=== PATIENT | female | born 1950 | race Caucasian/White ===

== ENCOUNTER 2016-06-21 07:59 | Inpatient (IN) | payer OTHER ==
--- NOTE | ~2016-06-21 | CN ---
Consultation Report [facility] [address] [place]. [address] NAME: MARCOS MORA : 52 STATUS : ADM IN PAT#: [id number] AGE: 65 ADM/REG DATE : 06/21/16 MR#: [id number] REPORT SERV DATE: 06/22/16 DICTATED BY: DATE: REPORT STATUS : Draft TRANSCRIBED BY: MODL DATE: 06/21/16 NEUROLOGY CONSULTATION DATE OF CONSULTATION: 06/21/2016 REASON FOR CONSULT: Right hemiparesis and possible stroke. HISTORY OF PRESENT ILLNESS: This is a 65-year-old female who presented to [facility] secondary to the patient waking up this morning with dysarthria, as well as right hemiparesis with the patient noted to have worsening right lower extremity weakness compared to the right upper extremity weakness. The patient's dysarthria subsequently improved, but weakness persists. Otherwise, the patient denies any sensory deficits. Denies similar events in the past. The patient was last noted to be normal on 06/20/2016 prior to going to bed. However, the patient reports waking up around midnight and needs her 's assistance to go to the bathroom. At that time, the patient denies any known focal deficits, although the patient does not recall being able to move her extremities very well. The patient otherwise reports epigastric pain for roughly about one to two weeks. Denies any blood in the stool and denies any other chest pain, shortness of breath, fever, or chills, and denies nausea or vomiting. The patient is compliant with her home medication. No other illness or psychosocial stress according to the patient. PAST MEDICAL HISTORY: Significant for hypertension, diabetes, as well as cardiac stents. No known prior history of strokes. FAMILY HISTORY: Significant for mother with TIA, as well as a stroke. The patient's mother was at the age of 62 from a stroke. The patient does have a previous history of tobacco abuse, but no recent tobacco usage, quit several years ago. Denies alcohol or illicit drug usage. ALLERGIES: THE PATIENT DOES HAVE A HISTORY OF DRUG ALLERGIES TO FLAGYL AND SYMBICORT. HOME MEDICATIONS: Consist of diabetic medication, hypertensive medication, as well as simvastatin and aspirin. The patient does report taking aspirin every day. REVIEW OF SYSTEMS: Negative except for those mentioned in the HPI. PHYSICAL EXAMINATION: VITAL SIGNS: At the time of ER presentation, the patient was noted to have vital signs with T-max of 98.5, heart rate of 87, respiration of 16, and blood pressure of 153/63. GENERAL: The patient is well developed, well nourished, in no acute distress. CARDIOVASCULAR: Regular rate and rhythm. No carotid bruits were otherwise auscultated. PULMONARY: Clear to auscultation bilaterally. NEUROLOGICAL EXAMINATION: Generally, the patient is alert and oriented to person, place, Consultation Report [place] [id number] [facility] [place]. [address] NAME: MARCOS MORA : 52 STATUS : ADM IN PAT#: [id number] AGE: 65 ADM/REG DATE : 06/21/16 MR#: [id number] REPORT SERV DATE: 06/22/16 DICTATED BY: DATE: REPORT STATUS : Draft TRANSCRIBED BY: PANDA DATE: 06/21/16 year, and month. Follows simple and two-step commands. No clear dysarthria was seen. No aphasia was noted. Intact registration and recall. Cranial nerves 2 through 12, pupils equal, round, and reactive to light. Intact peripheral vision by [id number] response. Symmetrical facial expression. Sensation midline. Tongue normal. Normal palatal movement. Symmetric hearing. The patient demonstrated a mild drift in the right upper and right lower extremity with the patient reports symmetric sensation bilaterally. Deep tendon reflex was 2+ throughout, 5/5 left upper and left lower extremity at the time of evaluation. Normal aeyrgq-go-bots examination without ataxia. Gait was not evaluated due to lower extremity weakness. LABORATORY DATA: The patient demonstrated white blood cell count of 5.1, hemoglobin of 14.8, hematocrit of 43.1, and platelet count of 421. Chemistry panel is currently pending. CT scan of the brain; no hemorrhage was seen. Concern for possible previous stroke in the left MCA temporal area distribution, but otherwise no acute process was noted. Generalized atrophy was otherwise seen. IMPRESSION: 1. Right hemiparesis with the patient last noted to be normal possibly around midnight. The patient woke up at 0630 hours with dysarthria and hemiparesis, with dysarthria subsequently improved. NIH stroke scale of 2. We are recommending admitting the patient to the hospital for stroke workup. We will continue aspirin with the addition of Plavix. We will change the simvastatin to atorvastatin, obtain PT/OT evaluation and treatment, and we will obtain MRI study for evaluation and stroke workup. 2. Epigastric pain. We will defer evaluation to our hospitalist. RECOMMENDATIONS: 1. Aspirin 81 mg p.o. daily. 2. Plavix 75 mg p.o. daily. 3. Lipitor 80 mg p.o. at bedtime. 4. PT/OT. 5. MRI of the brain without contrast. 6. Carotid Doppler study. 7. Echocardiogram with bubble study. 8. Fasting lipid panel with hemoglobin A1c. 9. We will start the patient on Protonix 40 mg p.o. daily. [facility]/PANDA Ian Carrasco MD / [id number] Consultation Report [address] [address] NAME: MARCOS MORA : 51 STATUS : ADM IN [facility]#: [id number] AGE: 65 ADM/REG DATE : 06/21/16 MR#: [id number] REPORT SERV DATE: 06/22/16 DICTATED BY: DATE: REPORT STATUS : Draft TRANSCRIBED BY: PANDA DATE: 06/21/16 CC: Delta Ott M.D.
--- NOTE | ~2016-06-21 | HP ---
History And Physical [place] [id number] [facility] [place]. [address] NAME: MARCOS MORA : 52 STATUS : ADM IN [facility]#: [id number] AGE: 65 ADM/REG DATE : 06/21/16 MR#: [id number] REPORT SERV DATE: 06/21/16 DICTATED BY: GENNY ABREU DATE: 06/21/16 REPORT STATUS : Draft TRANSCRIBED BY: MODL DATE: 06/21/16 DATE OF ADMISSION: 06/21/2016 CHIEF COMPLAINT: Right-sided weakness. HISTORY OF PRESENT ILLNESS: The patient is a very pleasant 65-year-old white female. She states she went to bed in her usual state of health last evening. She woke up at midnight and needed help to get to the bathroom. She states she was dizzy and sounds like she was ataxic. She went back to bed, then woke up at 6:30 this morning and had right-sided leg weakness, right-sided arm weakness, and dysarthria. Her dysarthria lasted for about 15 minutes and then resolved. She also had what she describes as some trouble swallowing. She presented to [facility] and was evaluated. She has never had any similar symptoms to this in the past. She did have an episode a couple of other times where she woke up the night and was dizzy, but did not notice any weakness. She has not had any fevers or chills. She does complain of another symptom today, which is unrelated to the current symptomatology; states she has had some mid epigastric pain for about two weeks associated with some nausea, but no vomiting. She has had appetite loss. She states as the day goes, the pain seems to get worse. She has not had any heartburn, indigestion, associated no fever with it, and no diarrhea. PAST MEDICAL HISTORY: 1. PAD with history of RIVER. 2. Hypertension. 3. Hyperlipidemia. 4. Diabetes mellitus. 5. Atrial ectopic arrhythmia. 6. COPD. 7. GERD. 8. Obesity. 9. Nonalcoholic steatohepatitis. 10.Uterine cancer. ALLERGIES: FLAGYL AND SYMBICORT. PAST SURGICAL HISTORY: She has had tonsillectomy, RIVER to her LAD, x2, tubal ligation, hernia repair, cholecystectomy, bilateral foot surgery, and hysterectomy. SOCIAL HISTORY: She quit smoking about seven years ago. She smoked two packs per day for 40+ years. She uses occasional wine. 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 FAMILY HISTORY: She has multiple family members with a CVA. She has two brothers with a CVA and mother with a CVA. HOME MEDICATIONS: Reviewed and attached. REVIEW OF SYSTEMS: History And Physical [address] [address] NAME: MARCOS MORA : 52 STATUS : ADM IN [facility]#: [id number] AGE: 65 ADM/REG DATE : 06/21/16 MR#: [id number] REPORT SERV DATE: 06/21/16 DICTATED BY: GENNY ABREU DATE: 06/21/16 REPORT STATUS : Draft TRANSCRIBED BY: PANDA DATE: 06/21/16 Full 10-point review of systems obtained. Pertinent positives mentioned in the HPI. PHYSICAL EXAMINATION: VITAL SIGNS: BP 143/70, temp 98.5, pulse is 70. Sats are 100%, respiratory rate 24. GENERAL: Obese white female. HEENT: Normocephalic, atraumatic. Pupils are equal, round, and reactive to light and accommodation. Extraocular muscles are intact. Throat is clear. NECK: Supple. HEART: Regular rate and rhythm. LUNGS: Grossly clear. ABDOMEN: Soft, nondistended, but mildly tender in the epigastric region. EXTREMITIES: Warm and dry. SKIN: Intact without rash or lesion. NEURO: She is alert. She is oriented to person, place, and time. Speech is intact. Cranial nerves 2 through 12 are intact. She has about a 3/5 in her right lower extremity as far as weakness goes and 4/5 in the right upper extremity. Her left upper and left lower extremity appeared to be intact with symmetrical strength and tone. EKG reveals sinus rhythm. LABORATORY AND X-RAY: Chest x-ray: Atelectasis in the left base. CT of the brain shows mild involutional and chronic small-vessel ischemic changes. Basic metabolic panel: Sodium 131, potassium 4.5, chloride 92, CO2 of 25, BUN and creatinine 10 and 0.73. LFTs are normal. Glucose is 87 other than an AST of 127. Troponin is 0.02. CBC: H and H 15 and 43, white count 5, and platelets are 121. Coags are normal. ASSESSMENT/PLAN: 1. Cerebrovascular accident versus transient ischemic attack. We will place the patient under the stroke order set. She is on aspirin and Plavix. Dr. Lopez has already seen her and added a high-dose statin as well. She is going to get MRI, echocardiogram, and evaluation of her carotids. We will place her on a tele bed. We will have Physical therapy, Speech Therapy see her in consultation, and go from there. 2. Midepigastric abdominal pain x2 weeks. We will do CT scan of the abdomen and pelvis without contrast. We will continue her PPI as written by Dr. Lopez. We will follow her symptomatology and go from there. 3. History of coronary artery disease with drug eluting stent, stable. Continue Plavix and aspirin. 4. History of hypertension. We will allow some permissive hypertension. I have written some parameters to hold some of her blood pressure medications. 5. Hyperlipidemia. Statin therapy. 6. Diabetes mellitus. Fingerstick blood sugars a.c. and h.s. with level 1 sliding scale. Continue her Amaryl. 7. History of chronic obstructive pulmonary disease, stable. History And Physical [address] [address] NAME: MARCOS MORA : 52 STATUS : ADM IN [facility]#: [id number] AGE: 65 ADM/REG DATE : 06/21/16 MR#: [id number] REPORT SERV DATE: 06/21/16 DICTATED BY: GENNY ABREU DATE: 06/21/16 REPORT STATUS : Draft TRANSCRIBED BY: MODL DATE: 06/21/16 8. History of gastroesophageal reflux disease, stable. 9. Deep venous thrombosis prophylaxis, on subcutaneous Lovenox. 10.Disposition, pending above the aforementioned plan and workup. [facility]/PANDA Genny Abreu M.D. / [id number] CC: Delta Ott M.D. Allen E Atchley, M.D.
--- NOTE | ~2016-06-21 | DS ---
Discharge Summary [facility] [address] [place]. [address] NAME: MARCOS MORA : 52 STATUS : DIS IN PAT#: [id number] AGE: 65 ADM/REG DATE : 06/21/16 MR#: [id number] REPORT SERV DATE: 06/23/16 DICTATED BY: SÁNCHEZ MARIO DATE: 06/23/16 REPORT STATUS : Draft TRANSCRIBED BY: MODJudy DATE: 06/23/16 ADMISSION DATE: 06/21/2016 DISCHARGE DATE: 06/23/2016 DISCHARGE DIAGNOSES: 1. Transient right-sided weakness with garbled speech, possible transient ischemic attack versus hypoglycemic episode. 2. Diabetes mellitus type 2 with A1c 5.1%. 3. Hypertension. 4. Chronic obstructive pulmonary disease. 5. Fatty liver. 6. History of uterine cancer. 7. History of coronary artery disease with PCI to the LAD in 03/2010. 8. Intolerance of Lipitor causing muscle pain. 9. Obesity with BMI 30.3. HISTORY: This patient had gotten up about midnight on 06/20/2016, felt a bit unsteady on her gait, went to the bathroom, assisted her. She had similar episode twice the previous week. She went back to bed. Then, when she woke up at 6:30 in the morning on 06/21/2016, she noticed weakness in her right arm, right leg. She and state her speech was garbled. She had some difficulty swallowing that made her cough. She came to the emergency room where she was evaluated by the ER staff as well as screened for stroke alert. The patient's symptoms were rapidly improving as far as her speech is normalized and her right-sided strength improved. She has never had anything like this before. She has no history of seizures and no history of closed head injury. states when the paramedics arrived, they checked her blood sugar, it was reportedly 64, and they gave her a Coke to drink. When she arrived to the emergency room, her sugar was 101. Her A1c is 5.1%, and she is still taking glimepiride despite this low A1c. It is suspicious that the patient's episode may have been a significant hypoglycemic event given the fact she is on glimepiride and her A1c is so low and what the paramedics noticed. I have advised her to stop the glimepiride and transition to metformin, which will not cause hypoglycemia, and follow up with her PCP about this. Further neurologic evaluation took place including a CT scan of the brain without contrast in the emergency room which revealed mild atrophy and mild chronic small vessel ischemic changes. No acute abnormalities were noted. MRI of the brain on 06/21/2016 revealed no acute abnormality whatsoever. Carotid ultrasound revealed less than 50% stenosis of the bilateral internal carotid arteries, each vertebral artery was flowing anterograde. She underwent echocardiogram on 06/21/2016, left atrium 3.5 cm, left ventricular ejection fraction 60%. No abnormalities were noted. Neurology, Dr. Carrasco, saw the patient and recommended only supplement of folic acid since her folate was 3.6. She did recommend a trial of Lipitor instead of her Zocor, but the patient states within 12 hours, she had significant muscle pains and does not want to stay on this. She states she does tolerate her Zocor, so will return to that. Discharge Summary [address] [address] NAME: MARCOS MORA : 52 STATUS : DIS IN PAT#: [id number] AGE: 65 ADM/REG DATE : 06/21/16 MR#: [id number] REPORT SERV DATE: 06/23/16 DICTATED BY: SÁNCHEZ MARIO DATE: 06/23/16 REPORT STATUS : Draft TRANSCRIBED BY: PANDA DATE: 06/23/16 She also states over the last two weeks, she has had some epigastric pain. It is not clearly provoked by meals or relieved by meals, some nausea, no vomiting. Appetite has been diminished a bit. CT scan of the abdomen and pelvis performed here on 06/21/2016 showed no significant abnormality to explain this pain. She does have a very marked fatty liver. She has evidence of previous cholecystectomy as well as ventral mesh hernia repair and a previous hysterectomy. The appendix appeared normal in the right lower quadrant. She has never seen GI for even screening colonoscopy. We are recommending that her PCP talk with her about seeing GI for not only routine colonoscopy for colon cancer screening but also to evaluate her for this epigastric pain as well. I did discuss with her and her about her fatty liver. DISCHARGE MEDICATIONS: Will include aspirin 162 mg daily, folic acid 1 mg daily (added because her folate was low at 3.6), Imdur 30 mg daily, nitroglycerin 0.4 mg sublingual p.r.n. chest pain, Cozaar 25 mg p.o. daily, metoprolol 50 mg b.i.d., omeprazole 20 mg daily which is a chronic medicine for her, Spiriva HandiHaler 1 capsule inhaled daily, Tylenol 650 q.6 hours p.r.n. pain, and Valium 2.5 mg b.i.d. which she takes p.r.n. panic attacks. We are stopping her glimepiride because of the suspected hypoglycemia above. We are starting metformin 500 mg p.o. daily, Zocor 40 mg at bedtime continued, and Leighton probiotic use it daily. She states she has a followup appointment scheduled week after next when her PCP gets back from being out of town and recommend that she see Dr. Manzanares at that time. I spent 44 minutes today with the patient and with her and with discharge planning. RSG/MODL Sánchez Mario M.D. / [id number] CC: Delta Ott M.D. Allen E Atchley, M.D.
[~2016-06-21 07:59] MED LIST: ADVAIR INH; ADVAIR250 INH; ASAB PO; CLARIT10 PO; COREG3 PO; COZ25 PO; EFFIENT10 PO; ESTRACE1 MG PO; NITROSTAT0.4 MG SL; PRILO PO; SPIRIVA INH; V5 PO; VENTOLIN HFA INH; ZOCOR40 PO
[2016-06-21 09:00] LABS: BASOPHILS 0.2 %; BASOPHILS ABSOLUTE 0.01 10/3/uL (0.0-0.16); EOSINOPHILS 0.4 %; EOSINOPHILS ABSOLUTE 0.02 10/3/uL (0.0-0.53); HEMOGLOBIN 14.8 g/dL (12.0-16.0); IMMATURE GRANULOCYTES 0.2 %; IMMATURE GRANULOCYTES ABSOLUTE 0.01 10/3/uL (0.0-0.11); LYMPHOCYTES 18.4 %; LYMPHOCYTES ABSOLUTE 0.94 10/3/uL (0.67-4.30); MEAN CORPUS HGB CONC 34.3 g/dL (32.0-36.0); MEAN PLATELET VOLUME 10.7 fL (9.2-13.0); MONOCYTES 8.2 %; MONOCYTES ABSOLUTE 0.42 10/3/uL (0.21-1.20); NEUTROPHILS 72.6 %; PLATELET COUNT 121 10/3/uL (150-400); RBC DISTRIBUTION WIDTH 14.2 % (12.0-16.0); RED CELL COUNT 3.89 10/6/uL (4.0-5.6); WHITE BLOOD CELLS 5.1 10/3/uL (4.5-10.5)
[2016-06-21 09:04] LABS: HEMATOCRIT 43.1 % (36.0-48.0); MANUAL DIFF NO %; MEAN CORPUSCULAR VOLUME 110.8 fL (80-100)
[2016-06-21 09:08] LABS: INTERNATIONAL NORMAL RATI 1.1 UNITS (-); PARTIAL THROMBO TIME 26.3 SEC (22.5-37.2); PROTIME (NOT ORD) 14.1 SEC (12.0-14.5)
[2016-06-21 09:18] LABS: ALBUMIN 3.7 G/DL (3.5-5.0); BUN (BLOOD UREA NITROGEN) 10 MG/DL (6-23); CO2 (CARBON DIOXIDE) 25 MMOL/L (24-34); CREATININE 0.73 MG/DL (0.55-1.02); GFR AFRICAN AMERICAN 101 ML/MIN (>=60); GFR NON AFRICAN AMERICAN 87 ML/MIN (>=60); GLOBULIN 3.7 G/DL (2.5-4.1); GLUCOSE, SERUM 80 MG/DL (60-99); POTASSIUM, SERUM 4.5 MMOL/L (3.5-5.3); SGOT(AST) 127 U/L (5-40); SGPT(ALT) 54 U/L (5-65); TOTAL PROTEIN 7.4 G/DL (6.0-8.5); TROPONIN I <0.02 NG/ML (<0.05)
[2016-06-21 09:20] LABS: ALKALINE PHOSPHATASE 87 U/L (45-117); CHLORIDE, SERUM 92 MMOL/L (96-112); SODIUM, SERUM 131 MMOL/L (135-148); TOTAL BILIRUBIN 1.1 MG/DL (0-1.2)
[2016-06-21] MEDS ORDERED: ZOCOR40 PO (09:24)
[2016-06-21] MEDS ORDERED: COZ25 PO (09:24)
[2016-06-21] MEDS ORDERED: PRILO PO (09:24)
[2016-06-21 09:25] LABS: PLATELET ESTIMATE SLT DEC (ADEQUATE)
[2016-06-21] MEDS ORDERED: V5 PO (09:25)
[2016-06-21] MEDS ORDERED: SPIRIVA INH (09:25)
[2016-06-21] MEDS ORDERED: NITROSTAT0.4 MG SL (09:25)
[2016-06-21] MEDS ORDERED: HALF81 PO (09:26)
[2016-06-21] MEDS ORDERED: IMDUR30 PO (09:26)
[2016-06-21] MEDS ORDERED: LOP50 PO (09:26)
[2016-06-21] MEDS ORDERED: AMARYL1 MG PO (09:26)
[2016-06-21] MEDS ORDERED: PHILLIPS PROBIOTIC PO (09:27)
[2016-06-21 12:13] LABS: BASOPHILS 0.1 %; BASOPHILS ABSOLUTE 0.01 10/3/uL (0.0-0.16); EOSINOPHILS 0.3 %; EOSINOPHILS ABSOLUTE 0.02 10/3/uL (0.0-0.53); HEMATOCRIT 41.5 % (36.0-48.0); HEMOGLOBIN 14.4 g/dL (12.0-16.0); IMMATURE GRANULOCYTES 0.3 %; IMMATURE GRANULOCYTES ABSOLUTE 0.02 10/3/uL (0.0-0.11); LYMPHOCYTES 10.1 %; LYMPHOCYTES ABSOLUTE 0.69 10/3/uL (0.67-4.30); MANUAL DIFF NO %; MEAN CORPUS HGB CONC 34.7 g/dL (32.0-36.0); MEAN CORPUSCULAR HEMOGLOB 38.3 pg (26.0-34.0); MEAN CORPUSCULAR VOLUME 110.4 fL (80-100); MEAN PLATELET VOLUME 11.2 fL (9.2-13.0); MONOCYTES 8.8 %; NEUTROPHILS 80.4 %; PLATELET COUNT 121 10/3/uL (150-400); RBC DISTRIBUTION WIDTH 14.1 % (12.0-16.0); RED CELL COUNT 3.76 10/6/uL (4.0-5.6); WHITE BLOOD CELLS 6.8 10/3/uL (4.5-10.5)
[2016-06-21 12:21] LABS: INTERNATIONAL NORMAL RATI 1.1 UNITS (-); PARTIAL THROMBO TIME 25.7 SEC (22.5-37.2); PROTIME (NOT ORD) 14.2 SEC (12.0-14.5)
[2016-06-21 12:34] LABS: CHOL/HDL RATIO(NOT ORDER) 1.7 (0-5); CHOLESTEROL 121 MG/DL (< 200); HDL CHOLESTEROL 70 MG/DL (> 49); LDL CHOLESTEROL 34 MG/DL (< 130); NON-HDL CHOLESTEROL 51 MG/DL (< 160); TRIGLYCERIDE 86 MG/DL (< 150); TROPONIN I <0.02 NG/ML (<0.05)
[2016-06-21 13:31] LABS: PLATELET ESTIMATE SLT DEC (ADEQUATE)
[2016-06-22 04:53] LABS: CHOL/HDL RATIO(NOT ORDER) 1.9 (0-5); CHOLESTEROL 108 MG/DL (< 200); HDL CHOLESTEROL 57 MG/DL (> 49); LDL CHOLESTEROL 30 MG/DL (< 130); NON-HDL CHOLESTEROL 51 MG/DL (< 160); TRIGLYCERIDE 105 MG/DL (< 150); TROPONIN I <0.02 NG/ML (<0.05)
[2016-06-22 04:54] LABS: FOLATE 3.6 NG/ML (>5.2)
[2016-06-22 10:36] LABS: ASCORBIC ACID (UR NOT ORDER) NEG (NEG); BILIRUBIN, URINE NEGATIVE (NEG); KETONE, URINE 20 MG/DL (NEG); LEUKOCYTE ESTERASE(NOT OR NEG (NEG); WBC (NOT ORDERED) (RFLEX) < 1 (0-5)
[2016-06-23] MEDS ORDERED: T PO (09:35)
[2016-06-23] MEDS ORDERED: FOLIC PO (09:37)
[2016-06-23] MEDS ORDERED: GLUCPH PO (09:38)
[2016-06-28 12:21] LABS: THIAMINE 1.7 nmol/L (()); THIAMINE MONOPHOSPHATE <0.5 nmol/L (())
== END 2016-06-23 10:36 | disposition home or self-care (01) | DRG 638 ==
LOC: ER 07:59 → 1SO 09:42
PROVIDERS: Emergency Medicine; Hospitalist; Internal Medicine; Psychiatry & Neurology Neurology
DX: E11.649 Type 2 diabetes mellitus with hypoglycemia without coma (principal); G81.91 Hemiplegia, unspecified affecting right dominant side; K76.0 Fatty (change of) liver, not elsewhere classified; G45.9 Transient cerebral ischemic attack, unspecified; K21.9 Gastro-esophageal reflux disease without esophagitis; I10 Essential (primary) hypertension; J44.9 Chronic obstructive pulmonary disease, unspecified; M79.1 Myalgia; R29.702 NIHSS score 2; R47.1 Dysarthria and anarthria; I65.23 Occlusion and stenosis of bilateral carotid arteries; T46.6X5A Adverse effect of antihyperlipidemic and antiarteriosclerotic drugs, initial encounter; E66.9 Obesity, unspecified; I25.10 Atherosclerotic heart disease of native coronary artery without angina pectoris; Z87.891 Personal history of nicotine dependence; Z68.30 Body mass index [BMI] 30.0-30.9, adult; Z85.42 Personal history of malignant neoplasm of other parts of uterus; Z79.84 Long term (current) use of oral hypoglycemic drugs; Z79.82 Long term (current) use of aspirin; Z79.899 Other long term (current) drug therapy; Z98.61 Coronary angioplasty status; Z88.8 Allergy status to other drugs, medicaments and biological substances
CPT/HCPCS: 70450; 70551; 71010; 74176; 80053; 80061; 81001; 82150; 82607; 82746; 82962; 83036; 83690; 84425; 84484; 85025; 85610; 85730; 93005; 93880; 99285; A9270-GY; C8929; Q9957